=== PATIENT | male | born 1965 | race Caucasian/White ===

== ENCOUNTER 2021-03-02 19:41 | Emergency (ER) | payer BC, SELFPAY ==
[2021-03-02 20:32] VITALS: BP 143/96; PULSE 97; RESP 20; TEMP 37.7; O2SAT 95; BMI 27.8
--- NOTE | 2021-03-02 21:03 | XRR_ITS ---
PROCEDURE INFORMATION: Exam: XR Chest Exam date and time: 03/02/2021 9:24 PM Age: 55 years old Clinical indication: Cough and fever and other: Body aches; Additional info: Covid symptoms TECHNIQUE: Imaging protocol: XR of the chest. Views: 1 view. COMPARISON: No relevant prior studies available. FINDINGS: Lungs: There are some increased interstitial opacities present in the hemithoraces bilaterally, left slightly worse than right, findings that could represent a bilateral interstitial pneumonia. Pleural spaces: Unremarkable. No pleural effusion. No pneumothorax. Heart/Mediastinum: Unremarkable. No cardiomegaly. Bones/joints: Unremarkable. XR/XR chest 1V portable [id number] IMPRESSION: Increased interstitial opacity seen in the hemithoraces bilaterally, left more prominent than right, findings that could represent an interstitial pneumonia.
[2021-03-03 00:20] VITALS: O2SAT 94
[2021-03-03 00:22] VITALS: BP 142/95; PULSE 81; RESP 16; O2SAT 95
[2021-03-03 00:37] LABS: Basophils # 0.1 10^3/uL (0.0-0.1); Basophils % 0.4 %; Eosinophils # 0.1 10^3/uL (0.0-0.8); Eosinophils % 0.5 %; Hematocrit 46.1 % (42.0-52.0); Hemoglobin 15.8 g/dL (11.7-16.6); Lymphocytes # 1.3 10^3/uL (0.8-4.8); Lymphocytes % 10.7 %; Mean Corpuscular HGB Conc 34.3 g/dL (30.0-36.0); Mean Corpuscular Hemoglobin 29.4 pg (28.0-34.0); Mean Corpuscular Volume 85.7 fL (80-94); Mean Platelet Volume 9.4 fL (7.4-10.4); Monocytes # 0.9 10^3/uL (0.2-0.9); Monocytes % 7.6 %; Neutrophils # 9.73 10^3/uL (1.8-7.7); Neutrophils % 80.5 %; Nucleated Red Blood Cells % 0 %; Platelet Count 279 10^3/cmm (130-400); Red Blood Count 5.38 10^6/uL (4.1-5.3); Red Cell Distribution Width 12.7 % (12.1-15.1); White Blood Count 12.1 10^3/uL (4.0-10.0)
[2021-03-03] MEDS: ketorolac 30 mg/mL INJ 15 MG IVP (00:50)
[2021-03-03] MEDS: azithromycin 250 mg Tablet 500 MG PO (00:50)
[2021-03-03] MEDS: cefTRIAXone 1,000 MG in sodium chloride 0.9% (plus) 50 ML 100 MG IV (00:50)
[2021-03-03] MEDS: sodium chloride 0.9% 1,000 ML 999 ML IV (00:51)
[2021-03-03 00:54] LABS: Lactate (Lactic Acid level) 1.2 mmol/L (0.5-2.2)
[2021-03-03 00:55] VITALS: BP 148/94; RESP 16; O2SAT 94
[2021-03-03 00:55] LABS: Alanine Aminotransferase 47 U/L (0-41); Albumin Level 4.3 g/dL (3.5-5.2); Alkaline Phosphatase 65 IU/L (40-130); Anion Gap 12.8 (5-19); Aspartate Amino Transferase 27 U/L (0-40); Blood Urea Nitrogen 13 mg/dL (6-20); Calcium 8.5 mg/dL (8.5-10.5); Carbon Dioxide 26 mmol/L (22-29); Chloride 101 mmol/L (98-107); Globulin 2.9 g/dL (1.3-4.6); Glomerular Filtration Rate 87.9 mL/min (90-130); Glucose 128 mg/dL (65-115); Osmolality Calculated 284 mOsm/kg (285-295); Potassium 3.8 mmol/L (3.5-5.1); Sodium 136 mmol/L (136-145); Total Bilirubin 0.8 mg/dL (0.15-1.2); Total Protein 7.2 g/dL (6.6-8.7)
[2021-03-03 00:57] LABS: SARS Covid-2 Antigen Negative (Negative)
--- NOTE | 2021-03-03 01:15 | W.ED.COVID ---
HPI - COVID General: Chief Complaint: COVID symptoms Stated Complaint: fever/body aches/covid symptoms Time Seen by Provider: 03/02/21 23:41 Source: patient Mode of arrival: ambulatory Triage information: Has fever, cough or shortness of breath. No known COVID + exposure last 14 days History of Present Illness: HPI Narrative: 55-year-old male with fever, body aches, chills starting today. He has had a cough and congestion for the last 2 weeks. No nausea or vomiting. No abdominal pain. His was sick with upper respiratory symptoms as well, but she is feeling better. They had assumed it was allergies. He does not have any history of COPD or asthma. He is otherwise healthy, not on any daily medications. COVID 19 common symptoms: positive fever(s), chills, non-productive cough, productive cough, dyspnea, headache(s) and nasal congestion COVID 19 other sytmptoms: negative chest pain COVID Results: SARS-CoV-2 Antigen (Rapid) Negative (Negative) 03/03/21 00:12 03/03/21 Nasal/Oral Coronavirus 2019 PCR Pending 03/03/21 00:12 03/03/21 Review of Systems General: Reports: 10 or more systems reviewed and unremarkable except in HPI and below Const: Reports: fever(s) and chills ENMT: Reports: hoarseness, nasal discharge and nasal congestion; Denies: odynophagia Card: Denies: chest pain or irregular heart rhythm Resp: Reports: dyspnea, productive cough, non-productive cough and pain on inspiration GI: Reports: abdominal pain : Denies: difficulty urinating or dysuria Musc: Denies: back pain, extremity pain or joint swelling Neuro: Reports: headache(s); Denies: numbness in extremities, weakness in extremities, sensory changes, lack of coordination, difficulty walking, frequent falls or dizziness Endo: Denies: polyuria or polydipsia Jonathon/Lymph: Denies: easy bruising, easy bleeding or petechiae All/Imm: Denies: urticaria or throat swelling Physical Exam Const: COMMON NORMALS: average body habitus and patient oriented x3 GENERAL APPEARANCE: cooperative and ill appearing; not diaphoretic ORIENTATION/CONSCIOUSNESS: Yes awake, Yes oriented to person, Yes oriented to place and Yes oriented to time HENMT: COMMON NORMALS: normocephalic and atraumatic HEAD & SCALP: normocephalic and atraumatic Neck/C-Spine: COMMON NORMALS: full ROM, no lymphadenopathy and supple Resp: COMMON NORMALS: normal respiratory effort and No use of accessory muscles EFFORT & INSPECTION: Yes able to speak in complete sentences, No tachypneic, No respiratory distress, No labored, No stridor, Yes Actively coughing, No retractions and No uses accessory muscles Cardio: COMMON NORMALS: regular rate and regular rhythm RATE: regular rate RHYTHM: regular rhythm HEART SOUNDS: no murmurs GI: COMMON NORMALS: Normal to inspection, nondistended, normoactive bowel sounds present, Soft to palpation, non-tender and no masses PALPATION: Yes Soft to palpation : COMMON NORMALS: Yes no CVA tenderness BLADDER/KIDNEY EXAM: Yes no CVA tenderness Back/Pelvis: COMMON NORMALS: no CVA tenderness Extremity: COMMON NORMALS: normal to inspection, full ROM, capillary refill normal and no pedal edema Neuro: COMMON NORMALS: patient oriented x3 SENSORIUM/ORIENTATION: Yes oriented to person, Yes oriented to place and Yes oriented to time Skin: COMMON NORMALS: no rashes or lesions noted, no wounds, turgor normal, no jaundice and no petechiae GENERAL SKIN EXAM: no rashes or lesions noted and turgor normal Course Vital Signs: Vital signs: Vital Signs Temperature 99.9 F H 03/02/21 20:32 Pulse Rate 78 03/03/21 01:51 Respiratory Rate 18 03/03/21 01:51 Blood Pressure 140/85 03/03/21 01:51 Pulse Oximetry 95 03/03/21 01:51 MDM - COVID MDM Narrative: Medical decision making narrative: 55-year-old male with 2-week history of upper respiratory congestion and cough, started having a fever, body aches and chills today. Chest x-ray shows bilateral basilar infiltrates, left greater than right. WBC count mildly elevated 12.1, otherwise lab work is unremarkable. Rapid Covid swab negative. O2 sats normal on room air. Treated with Toradol, Rocephin, p.o. Zithromax, fluid bolus. Prescription for Zithromax 500 mgx4d, cefdinir 300 mg twice daily for 7 days. Close follow-up with PCP to ensure resolution within the week. Differential Diagnosis: Differential diagnosis: Likely COVID 19, influenza, other viral infection, bacterial infection and pneumonia Medical Records: Attestation: I reviewed the patient's medical records. Lab Data: Attestation: I reviewed the patient's lab results. Labs: Lab Results 03/03/21 03/03/21 03/03/21 Range/Units 00:10 00:10 00:10 WBC 12.1 H (4.0-10.0) 10^3/ uL RBC 5.38 H (4.1-5.3) 10^6/u L Hgb 15.8 (11.7-16.6) g/dL Hct 46.1 (42.0-52.0) % MCV 85.7 (80-94) fL MCH 29.4 (28.0-34.0) pg MCHC 34.3 (30.0-36.0) g/dL RDW 12.7 (12.1-15.1) % Plt Count 279 (130-400) 10^3/c mm MPV 9.4 (7.4-10.4) fL Neut % (Auto) 80.5 % Lymph % (Auto) 10.7 % [place] % (Auto) 7.6 % Eos % (Auto) 0.5 % Baso % (Auto) 0.4 % Neut # (Auto) 9.73 H (1.8-7.7) 10^3/u L Lymph # (Auto) 1.3 (0.8-4.8) 10^3/u L Hardeman # (Auto) 0.9 (0.2-0.9) 10^3/u L Eos # (Auto) 0.1 (0.0-0.8) 10^3/u L Baso # (Auto) 0.1 (0.0-0.1) 10^3/u L Nucleated RBC % (a uto) 0 % Nucleated RBCs # 0.0 /100WBC Sodium 136 (136-145) mmol/L Potassium 3.8 (3.5-5.1) mmol/L Chloride 101 (98-107) mmol/L Carbon Dioxide 26 (22-29) mmol/L Anion Gap 12.8 (5-19) BUN 13 (6-20) mg/dL Creatinine 0.9 (0.7-1.2) mg/dL GFR Calculation 87.9 L (90-130) mL/min Glucose 128 H (65-115) mg/dL Calculated Osmolal ity 284 L (285-295) mOsm/k g Lactate 1.2 (0.5-2.2) mmol/L Calcium 8.5 (8.5-10.5) mg/dL Total Bilirubin 0.8 (0.15-1.2) mg/dL AST 27 (0-40) U/L ALT 47 H (0-41) U/L Alkaline Phosphata se 65 (40-130) IU/L Total Protein 7.2 (6.6-8.7) g/dL Albumin 4.3 (3.5-5.2) g/dL Globulin 2.9 (1.3-4.6) g/dL SARS-CoV-2 Ag (Rap id) (Negative) 03/03/21 Range/Units 00:12 WBC (4.0-10.0) 10^3/ uL RBC (4.1-5.3) 10^6/u L Hgb (11.7-16.6) g/dL Hct (42.0-52.0) % MCV (80-94) fL MCH (28.0-34.0) pg MCHC (30.0-36.0) g/dL RDW (12.1-15.1) % Plt Count (130-400) 10^3/c mm MPV (7.4-10.4) fL Neut % (Auto) % Lymph % (Auto) % [place] % (Auto) % Eos % (Auto) % Baso % (Auto) % Neut # (Auto) (1.8-7.7) 10^3/u L Lymph # (Auto) (0.8-4.8) 10^3/u L Hardeman # (Auto) (0.2-0.9) 10^3/u L Eos # (Auto) (0.0-0.8) 10^3/u L Baso # (Auto) (0.0-0.1) 10^3/u L Nucleated RBC % (a uto) % Nucleated RBCs # /100WBC Sodium (136-145) mmol/L Potassium (3.5-5.1) mmol/L Chloride (98-107) mmol/L Carbon Dioxide (22-29) mmol/L Anion Gap (5-19) BUN (6-20) mg/dL Creatinine (0.7-1.2) mg/dL GFR Calculation (90-130) mL/min Glucose (65-115) mg/dL Calculated Osmolal ity (285-295) mOsm/k g Lactate (0.5-2.2) mmol/L Calcium (8.5-10.5) mg/dL Total Bilirubin (0.15-1.2) mg/dL AST (0-40) U/L ALT (0-41) U/L Alkaline Phosphata se (40-130) IU/L Total Protein (6.6-8.7) g/dL Albumin (3.5-5.2) g/dL Globulin (1.3-4.6) g/dL SARS-CoV-2 Ag (Rap id) Negative (Negative) COVID Results: SARS-CoV-2 Antigen (Rapid) Negative (Negative) 03/03/21 00:12 03/03/21 Nasal/Oral Coronavirus 2019 PCR Pending 03/03/21 00:12 03/03/21 Discharge Plan Discharge Patient Disposition: Home Clinical Impression: Acute febrile illness, Suspected severe acute respiratory syndrome coronavirus 2 (SARS-CoV-2) infection Pneumonia Qualifiers: Pneumonia type: due to unspecified organism Laterality: bilateral Lung location: lower lobe of lung Qualified Code(s): J18.9 - Pneumonia, unspecified organism Condition: Stable Prescriptions: New Zithromax 500 mg tablet See Rx Instructions .ROUTE .COMPLEX Qty: 4 RF: 0 cefdinir 300 mg capsule 300 mg PO BID 7 Days Qty: 14 RF: 0 Discharge Orders: Discharge ED (Routine); Ordered 03/03/21 Ordered By: Rula Montero Discharge Diet: Advance as tolerated Discharge Activity: Resume usual activity Patient Instructions: Pneumonia (ED) Activity Restrictions/Additional Instructions: Rest, drink plenty of fluids, take Tylenol and ibuprofen as needed for fever and body aches. Call to schedule follow-up appoint with your primary care doctor in the next 3 days for recheck. Return immediately to the ER if you develop difficulty breathing, severe headache or confusion, vomiting, or any other concerning symptoms. Coding Level of Care Code ED Utility Operator for [facility] Fwd Exam Detailed
[2021-03-03 01:28] VITALS: BP 130/77; O2SAT 94
[2021-03-03 01:51] VITALS: BP 140/85; PULSE 78; RESP 18; O2SAT 95
[2021-03-03 15:06] LABS: Coronavirus Test Green County Not Detected
--- NOTE | 2021-03-03 16:12 | PC.NURSE ---
pt already notified of negative COVID results
--- NOTE | 2021-03-04 08:46 | PC.NURSE ---
Patient called and notified of COVID results at this time.
== END 2021-03-03 01:58 | disposition home or self-care (01) ==
PROVIDERS: Nurse Practitioner Family; Emergency Provider Family Medicine
DX: J18.9 Pneumonia, unspecified organism (principal); Z20.822 Contact with and (suspected) exposure to COVID-19
CPT/HCPCS: 71045; 80053; 83605; 85025; 87426; 87635; 96365; 96375; 99283; J0696; J1885; J7030; Q0144

== ENCOUNTER 2021-07-21 01:52 | Observation (INO) | payer BC, SELFPAY ==
[2021-07-21] VITALS (12 sets, daily range): BP systolic 122–170; BP diastolic 63–113; PULSE 55–84; RESP 15–18; TEMP 36.2–36.6; O2SAT 93–97; BMI 29.1
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
[2021-07-21] MEDS: ondansetron 2 mg/ML SDV 2 mL 4 MG IVP (02:36)
[2021-07-21] MEDS: HYDROmorphone 1 mg/mL INJ 1 mL IVP (02:36)
[2021-07-21] MEDS: sodium chloride 0.9% 1,000 ML 999 ML IV (02:37)
[2021-07-21 02:38] LABS: Basophils # 0.1 10^3/uL (0.0-0.1); Basophils % 0.4 %; Eosinophils # 0.2 10^3/uL (0.0-0.8); Eosinophils % 1.1 %; Hematocrit 43.7 % (42.0-52.0); Hemoglobin 15.2 g/dL (11.7-16.6); Lymphocytes # 4.1 10^3/uL (0.8-4.8); Lymphocytes % 27.5 %; Mean Corpuscular HGB Conc 34.8 g/dL (30.0-36.0); Mean Corpuscular Hemoglobin 29.5 pg (28.0-34.0); Mean Corpuscular Volume 84.7 fl (80-94); Mean Platelet Volume 9.2 fL (7.4-10.4); Monocytes # 1.5 10^3/uL (0.2-0.9); Neutrophils % 60.7 %; Nucleated Red Blood Cells % 0 %; Platelet Count 279 10^3/cmm (130-400); Red Blood Count 5.16 10^6/uL (4.1-5.3); Red Cell Distribution Width 12.8 % (12.1-15.1)
[2021-07-21] MEDS: iohexol 300 mg/mL 100 mL Btl IV (02:38)
[2021-07-21 02:53] LABS: Add Urine Microscopic? NO; Charge for UA Resulting for Rev
[2021-07-21 02:57] LABS: Alanine Aminotransferase 53 U/L (0-41); Albumin Level 3.9 g/dL (3.5-5.2); Alkaline Phosphatase 60 IU/L (40-130); Anion Gap 14.8 (5-19); Aspartate Amino Transferase 23 U/L (0-40); Blood Urea Nitrogen 15 mg/dL (6-20); Calcium 8.3 mg/dL (8.5-10.5); Carbon Dioxide 25 mmol/L (22-29); Chloride 102 mmol/L (98-107); Globulin 2.3 g/dL (1.3-4.6); Glomerular Filtration Rate 100.7 mL/min (90-130); Glucose 102 mg/dL (65-115); Osmolality Calculated 287 mOsm/kg (285-295); Potassium 3.8 mmol/L (3.5-5.1); Sodium 138 mmol/L (136-145); Total Bilirubin 0.4 mg/dL (0.15-1.2); Total Protein 6.2 g/dL (6.6-8.7)
[2021-07-21 03:00] LABS: Bilirubin Urine Neg (Negative); Blood Urine Neg (Negative); Glucose Urine UA Norm (Normal); Ketones Urine Negative (Negative); Leukocyte Esterase Urine Negative (Negative); Nitrate Urine Negative (Negative); Protein Urine Neg (Negative); Specific Gravity, Urine 1.015 (1.005-1.030); Urine Appearance Clear (CLEAR); Urine Color Yellow (Yellow); Urobilinogen Urine Norm (Negative); pH Urine 7 (5-7)
[2021-07-21 03:08] LABS: Lipase 359 U/L (13-60)
[2021-07-21 04:41] LABS: Triglycerides 202 mg/dL (0-150)
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
[2021-07-21] MEDS: enoxaparin 40 mg/0.4 mL Syringe SUBCUT (06:04)
[2021-07-21] MEDS: pantoprazole 40 mg SDV IVP (06:04)
[2021-07-21] MEDS: sodium chloride 0.9% 1,000 ML 75 ML IV (06:05)
--- NOTE | 2021-07-21 08:03 | PC.PHAR ---
pt states he takes care of his own medications-pt states he finished his prednisone on 07/20/21 rrx filled on 07/14/21 5d/s-pt states he normally doesnt take any medications
--- NOTE | 2021-07-21 10:35 | P.DS_ITS ---
Discharge Providers Date of Admission: 07/21/21 05:22 Date of Discharge: July 21, 2021 Attending Provider at Admission: Ilir Velazquez MD Attending Provider at Discharge: Phoebe Nazario MD Diagnoses at Discharge Discharge Diagnosis (1) Acute pancreatitis: Status: Acute Reason for Visit Reason for Visit: abd pain Hospital Course Hospital Course 55-year male nonalcoholic, smoker, presented with chief complaint abdominal pain he was diagnosed with pancreatitis. No gallstones, triglyceride below 500, he did try some antibiotics for sinusitis before his presentation to the hospital. Overnight he was kept n.p.o., he was started on opioids and IV fluids. Next day his symptoms resolved patient was eager to go home. Is tolerated his diet very well without any recurrence of symptoms. His abdomen was soft no signs of peritonitis. Decision was made to discharge him home with Zofran, electrolyte replenishment. Physical Exam Narrative: EXAM NARRATIVE: Patient was laying comfortably in his bed Saturating well on room air EOMI, PERRLA S1, S2 Abdomen soft no signs of peritonitis No joint swelling no sign of cellulitis Discharge Data Data Completed and Pending: Completed Studies During Hospitalization Category Date Time Status CT abdomen pelvis w con* [id number] Urge nt Cat Scan 07/21/21 02:07 Completed Labs from last 24 hours 07/21/21 07/21/21 07/21/21 03:10 02:25 02:25 WBC RBC Hgb Hct MCV MCH MCHC RDW Plt Count MPV Neut % (Auto) Lymph % (Auto) [place] % (Auto) Eos % (Auto) Baso % (Auto) Neut # (Auto) Lymph # (Auto) [place] # (Auto) Eos # (Auto) Baso # (Auto) Nucleated RBC % (a uto) Nucleated RBCs # Sodium Potassium Chloride Carbon Dioxide Anion Gap BUN Creatinine GFR Calculation Glucose Calculated Osmolal ity Lactate 1.0 Calcium Total Bilirubin AST ALT Alkaline Phosphata se Total Protein Albumin Globulin Triglycerides 202 H Lipase Urine Color Yellow Urine Appearance Clear Urine pH 7 Ur Specific Gravit y 1.015 Urine Protein Neg Urine Glucose (UA) Norm Urine Ketones Negative Urine Blood Neg Urine Nitrate Negative Urine Bilirubin Neg Urine Urobilinogen Norm Ur Leukocyte Sherie ase Negative 07/21/21 07/21/21 02:25 02:25 WBC 15.0 H RBC 5.16 Hgb 15.2 Hct 43.7 MCV 84.7 MCH 29.5 MCHC 34.8 RDW 12.8 Plt Count 279 MPV 9.2 Neut % (Auto) 60.7 Lymph % (Auto) 27.5 [place] % (Auto) 10.0 Eos % (Auto) 1.1 Baso % (Auto) 0.4 Neut # (Auto) 9.10 H Lymph # (Auto) 4.1 [place] # (Auto) 1.5 H Eos # (Auto) 0.2 Baso # (Auto) 0.1 Nucleated RBC % (a uto) 0 Nucleated RBCs # 0.0 Sodium 138 Potassium 3.8 Chloride 102 Carbon Dioxide 25 Anion Gap 14.8 BUN 15 Creatinine 0.8 GFR Calculation 100.7 Glucose 102 Calculated Osmolal ity 287 Lactate Calcium 8.3 L Total Bilirubin 0.4 AST 23 ALT 53 H Alkaline Phosphata se 60 Total Protein 6.2 L Albumin 3.9 Globulin 2.3 Triglycerides Lipase 359 H Urine Color Urine Appearance Urine pH Ur Specific Gravit y Urine Protein Urine Glucose (UA) Urine Ketones Urine Blood Urine Nitrate Urine Bilirubin Urine Urobilinogen Ur Leukocyte Sherie ase Vitals: Last Vital Signs Temp 97.3 F L 07/21/21 07:35 Pulse 55 L 07/21/21 07:35 Resp 18 07/21/21 07:35 BP 147/83 07/21/21 07:35 Pulse Ox 95 07/21/21 07:35 Discharge Plan Discharge Patient Disposition: Home Condition: Stable Prescriptions: New Zofran 4 mg tablet 4 mg PO DAILY 3 Days Qty: 10 RF: 0 potassium chloride 10 mEq capsule, extended release 10 meq PO DAILY Qty: 4 RF: 0 Continued promethazine-DM 6.25-15 mg/5 mL syrup 5 ml PO BEDTIME RF: 0 prednisone 20 mg tablet 40 mg PO DAILY RF: 0 Tylenol Extra Strength 500 mg Tablet 1,000 mg PO Q4H PRN (Reason: Pain) RF: 0 albuterol sulfate 90 mcg/actuation HFA aerosol inhaler 2 puff INHALATION Q4H PRN (Reason: Shortness Of Breath) RF: 0 Discharge Orders: Discharge Order (Routine); Ordered 07/21/21 Ordered By: Phoebe Nazario Other Ambulatory Orders: Lipase (Routine) Timeframe: 2 Days Facility: [facility] - Location: Lab - Main Lab Ordered By: Phoebe Nazario Referrals: Toy Torres MD [Physician] - 07/26/21 1:30 pm Discharge Diet: Advance as tolerated Discharge Activity: Increase activity as tolerated Patient Instructions: Potassium Chloride (By mouth), Ondansetron (By mouth), Pancreatitis (GEN), Opioid Safety Activity Restrictions/Additional Instructions: Please take potassium for next 3 days your potassium level is 3.9, lipase check within 3 days, you have been prescribed Zofran for nausea Discharge Attestations Time Spent in Discharge Care*: less than 30 min Quality Metrics Clinical Quality Measures During this hospital stay, did patient experience: None Coding Level of Care Code Acute Chg FW DC note Diagnoses Acute pancreatitis K85.90
--- NOTE | 2021-07-24 12:49 | PC.SOCIAL ---
discharge follow up call made. patient reports he is having some nausea but is taking zofran and promethazine which are helping. patient is aware of follow up appointment with Dr. Torres on 07-26. patient is coming to [facility] today for lab draw for lipase. patient is taking potassium as prescribed. denies any questions or concerns.
== END 2021-07-21 14:25 | disposition home or self-care (01) ==
LOC: ER 04:26 → MEDSURG 07:20
PROVIDERS: Admitting Provider Family Medicine; Emergency Provider Emergency Medicine; Visit Provider Internal Medicine
DX: K85.90 Acute pancreatitis without necrosis or infection, unspecified (principal); K21.9 Gastro-esophageal reflux disease without esophagitis; Z82.49 Family history of ischemic heart disease and other diseases of the circulatory system
CPT/HCPCS: 74177; 80053; 81003; 83605; 83690; 84478; 85025; 96361; 96372; 96374; 96375; 99285; C9113; G0378; J1170; J1650; J2405; J7030; Q9967

== ENCOUNTER 2021-07-24 16:38 | Emergency (ER) | payer BC, SELFPAY ==
[2021-07-24 17:09] VITALS: BP 142/95; PULSE 86; RESP 16; TEMP 37; O2SAT 95
[2021-07-24] MEDS: calcium carbonate 500 mg Chew Tablet 1000 MG PO (20:09)
--- NOTE | 2021-07-24 21:12 | W.ED.ABDPA2 ---
HPI - Abdominal Pain General: Chief Complaint: Abdominal Pain Stated Complaint: SENT BY PCP: PANCREATITIS Time Seen by Provider: 07/24/21 21:12 History of Present Illness: HPI narrative: 55-year-old male patient comes in with persistent nausea and vomiting after diagnosis of pancreatitis last week. Patient was discharged from the hospital on the after spending the night in the hospital for his pancreatitis. At that time patient's lipase was in the 300s and his CT noticed some stranding in the pancreas and also some mild duodenitis. Patient had no other abnormalities noted. Patient was seen by primary care today and referred back to the ER for further evaluation. MD elicited complaint: abdominal pain Associated Symptoms: Reports nausea and vomiting Review of Systems General: Reports: 10 or more systems reviewed and unremarkable except in HPI and below GI: Reports: abdominal pain, nausea and vomiting PFS ED PFSH: Medical History (Updated 07/24/21 @ 22:36 by TYLOR Turcios) History of gastroesophageal reflux (GERD) Surgical History (Updated 07/21/21 @ 04:53 by Ilir Velazquez MD) History of exploratory laparotomy Family History (Updated 07/21/21 @ 04:53 by Ilir Velazquez MD) Sister CAD (coronary artery disease) Brother CAD (coronary artery disease) Social History (Updated 07/21/21 @ 04:54 by Ilir Velazquez MD) Smoking and tobacco status: never smoked Alcohol intake: current Alcohol intake frequency: holidays/special occasions only Physical Exam Const: COMMON NORMALS: no acute distress and patient oriented x3 GENERAL APPEARANCE: cooperative HENMT: COMMON NORMALS: normocephalic and Normal external nose present HEAD & SCALP: normal to inspection and normocephalic NOSE: Normal external nose present MOUTH: Normal oral and palatal mucosa present Eye: GENERAL EYE: appearance normal, both eyes and all related structures Neck/C-Spine: COMMON NORMALS: full ROM Chest: COMMONS NORMALS: normal inspection of the chest Resp: COMMON NORMALS: normal respiratory effort EFFORT & INSPECTION: Yes able to speak in complete sentences Cardio: COMMON NORMALS: regular rate and regular rhythm RATE: regular rate RHYTHM: regular rhythm GI: COMMON NORMALS: Soft to palpation PALPATION: Yes Soft to palpation, Yes Tenderness to palpation present (GI) (tenderness in epigastric in right quadrant) and No Guarding due to palpation present (GI) : COMMON NORMALS: Yes no CVA tenderness BLADDER/KIDNEY EXAM: Yes no CVA tenderness Back/Pelvis: COMMON NORMALS: no CVA tenderness and thoracic and lumbar spine normal to inspection Extremity: COMMON NORMALS: normal to inspection Neuro: COMMON NORMALS: patient oriented x3 and moves all extremities Psych: COMMON NORMALS: mental status grossly normal and cooperative Skin: COMMON NORMALS: no rashes or lesions noted GENERAL SKIN EXAM: no rashes or lesions noted Course Vital Signs: Vital signs: Vital Signs Temperature 98.6 F 07/24/21 17:09 Pulse Rate 75 07/24/21 21:46 Respiratory Rate 18 07/24/21 21:46 Blood Pressure 137/104 07/24/21 21:46 Pulse Oximetry 95 07/24/21 21:46 MDM - Abdominal Pain MDM Narrative: Medical decision making narrative: Patient was referred from primary care for further evaluation regarding abdominal pain. On exam patient had some generalized abdominal pain mainly in the epigastric region of abdomen. Bowel sounds were present. Abdomen was soft. Vital signs were normal except for some mild elevation in blood pressure. Differential diagnosis includes but not limited to gallbladder disease, worsening pancreatitis, dehydration, duodenitis. Reviewed CT scan from the when patient was last here it showed some mild pancreatitis and duodenitis. Patient's laboratory values were similar to prior exam except lipase had returned to normal and liver enzymes have returned to normal. Patient did have some mild leukocytosis with 15,000 white count and some mild elevation in his hemoglobin of 17.5. Patient's creatinine also increased to 1.0. I felt the patient probably had some dehydration due to his bouts of nausea and vomiting that persisted over the weekend. Patient's potassium was good at 4.2. Patient was given 2 L of normal saline with famotidine, ondansetron, and 15 mg of ketorolac. Patient had resolution of abdominal pain and felt much improved. I reviewed with patient recommendations for returning to a clear liquid diet and increasing diet over the next couple of days. I strongly recommended avoiding strong greasy and spicy foods. Patient reported understanding and agreed to plan. Lab Data: Labs: Lab Results 07/24/21 07/24/21 07/24/21 21:17 21:17 21:17 WBC 15.4 10^3/uL H 10 ^3/uL (4.0-10.0) RBC 5.88 10^6/uL H 10 ^6/uL (4.1-5.3) Hgb 17.5 g/dL H g/dL (11.7-16.6) Hct 50.4 % % (42.0-52.0) MCV 85.7 fl fl (80-94) MCH 29.8 pg pg (28.0-34.0) MCHC 34.7 g/dL g/dL (30.0-36.0) RDW 13.0 % % (12.1-15.1) Plt Count 320 10^3/cmm 10^3 /cmm (130-400) MPV 9.3 fL fL (7.4-10.4) Neut % (Auto) 66.1 % % Lymph % (Auto) 20.7 % % [place] % (Auto) 10.1 % % Eos % (Auto) 2.2 % % Baso % (Auto) 0.4 % % Neut # (Auto) 10.20 10^3/uL H 1 0^3/uL (1.8-7.7) Lymph # (Auto) 3.2 10^3/uL 10^3/ uL (0.8-4.8) [place] # (Auto) 1.6 10^3/uL H 10^ 3/uL (0.2-0.9) Eos # (Auto) 0.3 10^3/uL 10^3/ uL (0.0-0.8) Baso # (Auto) 0.1 10^3/uL 10^3/ uL (0.0-0.1) Nucleated RBC % (a uto) 0 % % Nucleated RBCs # 0.0 /100WBC /100W BC Sodium 136 mmol/L mmol/L (136-145) Potassium 4.2 mmol/L mmol/L (3.5-5.1) Chloride 100 mmol/L mmol/L (98-107) Carbon Dioxide 23 mmol/L mmol/L (22-29) Anion Gap 17.2 (5-19) BUN 14 mg/dL mg/dL (6-20) Creatinine 1.0 mg/dL mg/dL (0.7-1.2) GFR Calculation 77.9 mL/min L mL/ min (90-130) Glucose 94 mg/dL mg/dL (65-115) Calculated Osmolal ity 282 mOsm/kg L mOs m/kg (285-295) Lactate 0.9 mmol/L mmol/L (0.5-2.2) Calcium 9.5 mg/dL mg/dL (8.5-10.5) Total Bilirubin 0.6 mg/dL mg/dL (0.15-1.2) AST 14 U/L U/L (0-40) ALT 25 U/L U/L (0-41) Alkaline Phosphata se 69 IU/L IU/L (40-130) Total Protein 7.7 g/dL g/dL (6.6-8.7) Albumin 4.0 g/dL g/dL (3.5-5.2) Globulin 3.7 g/dL g/dL (1.3-4.6) Lipase 51 U/L U/L (13-60) Discharge Plan Discharge Patient Disposition: Home Clinical Impression: Dehydration, Duodenitis Abdominal pain Qualifiers: Abdominal location: epigastric Qualified Code(s): R10.13 - Epigastric pain Pancreatitis Qualifiers: Chronicity: acute Pancreatitis type: unspecified pancreatitis type Acute pancreatitis complication: no infection or necrosis Qualified Code(s): K85.90 - Acute pancreatitis without necrosis or infection, unspecified Condition: Stable Prescriptions: New Heartburn Prevention 20 mg tablet 20 mg PO BID 28 Days Qty: 56 RF: 0 No Action promethazine-DM 6.25-15 mg/5 mL syrup 5 ml PO BEDTIME RF: 0 prednisone 20 mg tablet 40 mg PO DAILY RF: 0 Tylenol Extra Strength 500 mg Tablet 1,000 mg PO Q4H PRN (Reason: Pain) RF: 0 albuterol sulfate 90 mcg/actuation HFA aerosol inhaler 2 puff INHALATION Q4H PRN (Reason: Shortness Of Breath) RF: 0 potassium chloride 10 mEq capsule, extended release 10 meq PO DAILY Qty: 4 RF: 0 Discharge Orders: Discharge ED (Routine); Ordered 07/24/21 Ordered By: Higinio Rosado Referrals: Toy Torres MD [Primary Care Provider] - Discharge Diet: Usual diet Discharge Activity: Increase activity as tolerated Patient Instructions: Abdominal Pain (ED), Opioid Safety Activity Restrictions/Additional Instructions: Start back with a light diet. Stick with clear liquids until pain is completely resolved. Then add back slowly with full liquids, broth soups, or cream soups. Then increase to a bland diet. Try to avoid really greasy or fatty foods. Also avoid any strong acidic foods. Follow-up with primary care for further instruction. Return to the ER for new concerns. Coding Level of Care Code ED Want Ad Receiver for Debora Fwd Exam Comprehensive
[2021-07-24 21:20] LABS: Basophils # 0.1 10^3/uL (0.0-0.1); Basophils % 0.4 %; Eosinophils # 0.3 10^3/uL (0.0-0.8); Eosinophils % 2.2 %; Hematocrit 50.4 % (42.0-52.0); Hemoglobin 17.5 g/dL (11.7-16.6); Lymphocytes # 3.2 10^3/uL (0.8-4.8); Lymphocytes % 20.7 %; Mean Corpuscular HGB Conc 34.7 g/dL (30.0-36.0); Mean Corpuscular Hemoglobin 29.8 pg (28.0-34.0); Mean Corpuscular Volume 85.7 fl (80-94); Mean Platelet Volume 9.3 fL (7.4-10.4); Monocytes # 1.6 10^3/uL (0.2-0.9); Monocytes % 10.1 %; Neutrophils % 66.1 %; Nucleated Red Blood Cells % 0 %; Platelet Count 320 10^3/cmm (130-400); Red Blood Count 5.88 10^6/uL (4.1-5.3); White Blood Count 15.4 10^3/uL (4.0-10.0)
[2021-07-24 21:25] VITALS: PULSE 80; RESP 25; O2SAT 94
[2021-07-24] MEDS: ondansetron 2 mg/ML SDV 2 mL 4 MG IVP (21:27)
[2021-07-24] MEDS: famotidine 20 mg/2 mL INJ 40 MG IVP (21:30)
[2021-07-24] MEDS: ketorolac 30 mg/mL INJ 15 MG IVP (21:32)
[2021-07-24] MEDS: sodium chloride 0.9% 1,000 ML 999 ML IV ×2 (21:33→22:11)
[2021-07-24 21:36] LABS: Alanine Aminotransferase 25 U/L (0-41); Alkaline Phosphatase 69 IU/L (40-130); Anion Gap 17.2 (5-19); Aspartate Amino Transferase 14 U/L (0-40); Blood Urea Nitrogen 14 mg/dL (6-20); Calcium 9.5 mg/dL (8.5-10.5); Carbon Dioxide 23 mmol/L (22-29); Chloride 100 mmol/L (98-107); Globulin 3.7 g/dL (1.3-4.6); Glomerular Filtration Rate 77.9 mL/min (90-130); Glucose 94 mg/dL (65-115); Lipase 51 U/L (13-60); Osmolality Calculated 282 mOsm/kg (285-295); Potassium 4.2 mmol/L (3.5-5.1); Sodium 136 mmol/L (136-145); Total Bilirubin 0.6 mg/dL (0.15-1.2); Total Protein 7.7 g/dL (6.6-8.7)
[2021-07-24 21:37] LABS: Lactate (Lactic Acid level) 0.9 mmol/L (0.5-2.2)
[2021-07-24 21:46] VITALS: BP 137/104; PULSE 75; RESP 18; O2SAT 95
[2021-07-24 22:49] VITALS: BP 132/78; PULSE 88; RESP 16; O2SAT 99
== END 2021-07-24 22:51 | disposition home or self-care (01) ==
PROVIDERS: Emergency Provider Nurse Practitioner Family; PCP Family Medicine
DX: K85.90 Acute pancreatitis without necrosis or infection, unspecified (principal); K29.80 Duodenitis without bleeding; R10.13 Epigastric pain; E86.0 Dehydration
CPT/HCPCS: 80053; 83605; 83690; 85025; 96361; 96374; 96375; 99284; J1885; J2405; J3490; J7030

== ENCOUNTER → 2022-06-21 07:25 | Outpatient (BNVA) | payer BC, SELFPAY | PROVIDERS: PCP Family Medicine; Visit Provider Student in an Organized Health Care Education/Training Program | DX: M25.561 Pain in right knee (principal) | CPT/HCPCS: 73564 ==

== ENCOUNTER 2022-08-14 07:10 | Outpatient (CLI) | payer BC, SELFPAY ==
--- NOTE | 2022-08-14 07:15 | MR_ITS ---
WS: [id number] MRI RIGHT KNEE NONCONTRAST TECHNIQUE: Axial PD, coronal PD fat sat, coronal PD, sagittal PD, and sagittal PD fat-sat images obta ined. CLINICAL INFORMATION: pain COMPARISON: None. FINDINGS: Distal quadriceps and patella tendons are intact. Moderate suprapatellar effusion.Normal ACL and PCL. Advanced tricompartmental arthritis prominent for patient this age. Diffuse intrasubstance signal abn ormality with chronic appearing tear involving the medial meniscus. Anterior and peripheral extrusion of the medial meniscus with chronic thinning and diffuse abnormal intrasubstance signal abnormality. Normal lateral meniscus. Moderate chondromalacia patella. No subchondral edema. Normal medial and lateral patellar retinaculum . Normal lateral collateral ligament. Normal medial collateral ligament. MR/MR knee RT wo con* [id number] IMPRESSION: 1. Moderate suprapatellar effusion. 2. ACL and PCL are intact. 3. Advanced tricompartmental arthritis prominent for patient this age. 4. Diffuse intrasubstance signal abnormality involving the medial meniscus wit h peripheral and anterior extrusion and advanced joint space narrowing medial j oint compartment with [id number] articulation. This is likely due to chronic tear 5. Medial and lateral collateral ligaments are intact. 6. Moderate chondromalacia patella. Outbridge grading: grade IV: full-thickness cartilage loss with underlying bone reactive changes
== END 2022-08-14 07:11 | disposition home or self-care (01) ==
LOC: RAD 07:11
PROVIDERS: PCP Family Medicine; Visit Provider Student in an Organized Health Care Education/Training Program
DX: M17.11 Unilateral primary osteoarthritis, right knee (principal); M22.41 Chondromalacia patellae, right knee; M25.461 Effusion, right knee
CPT/HCPCS: 73721

== ENCOUNTER → 2024-01-02 08:42 | Outpatient (BNVA) | payer BC, SELFPAY | PROVIDERS: PCP Family Medicine; Visit Provider Physician Assistant | DX: M25.561 Pain in right knee (principal); M94.261 Chondromalacia, right knee | CPT/HCPCS: 73560; 73565 ==

== ENCOUNTER → 2024-09-03 11:41 | Outpatient (BNVA) | payer BC, SELFPAY | PROVIDERS: PCP Family Medicine; Visit Provider Physician Assistant | DX: M25.561 Pain in right knee (principal); M94.261 Chondromalacia, right knee; S83.206A Unspecified tear of unspecified meniscus, current injury, right knee, initial encounter; X50.9XXA Other and unspecified overexertion or strenuous movements or postures, initial encounter; R03.0 Elevated blood-pressure reading, without diagnosis of hypertension | CPT/HCPCS: 73560; 73565 ==

== ENCOUNTER 2025-04-19 07:51 | Emergency (ER) | payer BC, SELFPAY ==
[2025-04-19] VITALS (7 sets, daily range): BP systolic 135–190; BP diastolic 89–120; PULSE 52–67; RESP 14–22; TEMP 36.4; O2SAT 94–97
--- NOTE | 2025-04-19 08:18 | XRR_ITS ---
PROCEDURE INFORMATION: Exam: XR Chest Exam date and time: 04/19/2025 8:33 AM Age: 59 years old Clinical indication: Pain; Chest pressure; Additional info: Chest pain TECHNIQUE: Imaging protocol: Radiologic exam of the chest. Views: 1 view. COMPARISON: CR XR chest 1V portable [id number] 03/02/2021 9:13 PM FINDINGS: Lungs: Unremarkable. No consolidation. Pleural spaces: Unremarkable. No pleural effusion. No pneumothorax. Heart/Mediastinum: Unremarkable. No cardiomegaly. Bones/joints: Unremarkable. XR/XR chest 1V portable [id number] IMPRESSION: No acute findings.
--- NOTE | 2025-04-19 08:18 | ECG_ITS ---
[facility] Test Date: 2025-04-19 Pat Name: Mando Garcia Department: Room: Gender: Male Train Engineer: : 1965 Requested By: Giuseppe Ty Order Number: [id number] Hollie MD: Mike Boland M.D. Measurements Intervals [place] Rate: 69 P: 60 DE: 155 QRS: -74 QRSD: 120 T: 62 QT: 409 QTc: 440 Interpretive Statements SINUS RHYTHM RIGHT BUNDLE BRANCH BLOCK [120+ ms QRS DURATION, UPRIGHT V1, 40+ ms S IN I/aVL/V4/V5/V6] LEFT ANTERIOR FASCICULAR BLOCK [QRS AXIS <= -45, QR IN I, RS IN II] No previous ECG available for comparison Electronically Signed On 04-19-2025 21:57:44 CDT by Mike Boland M.D. [id number]
[2025-04-19 08:31] LABS: Basophils # 0.1 10^3/uL (0.0-0.1); Basophils % 1.1 %; Eosinophils # 0.5 10^3/uL (0.0-0.8); Eosinophils % 6.2 %; Hematocrit 48.8 % (37-53); Lymphocytes # 2.6 10^3/uL (0.8-4.8); Lymphocytes % 32.8 %; Mean Corpuscular HGB Conc 34.4 g/dL (30-55); Mean Corpuscular Hemoglobin 29.9 pg (27-33); Mean Platelet Volume 9.2 fL (7.4-10.4); Monocytes # 0.8 10^3/uL (0.2-0.9); Monocytes % 10.3 %; Neutrophils # 3.95 10^3/uL (1.8-7.7); Neutrophils % 49.2 %; Nucleated Red Blood Cells % 0 %; Platelet Count 271 10^3/cmm (157-399); Red Blood Count 5.61 10^6/uL (3.85-5.65); Red Cell Distribution Width 12.8 % (12.1-15.1); White Blood Count 8.04 10^3/uL (3.29-11.43)
--- NOTE | 2025-04-19 08:36 | W.ED.CHESTPA ---
HPI - Chest Pain General: Chief Complaint: Chest Pain Stated Complaint: cp, dizzy,abd pain Time Seen by Provider: 04/19/25 07:53 History of Present Illness: 51-year-old male presents emergency room with episodes of chest discomfort. He gets chest pain on the left side no radiation some shortness of breath associated with it it will last for approximately 30 seconds then resolves. At time I seen him he has no acute chest pain. No associated nausea or vomiting he reports he just does not feel good he does have a little bit of abdominal discomfort with it. No fever sweats chills no productive cough. No history of coronary disease no history of previous DVT or PE Associated symptoms: Reports abdominal pain and nausea; Deny dyspnea, fever(s) or vomiting Related Data Home Medications ?Medication ?Instructions ?Recorded ?Confirmed omeprazole 20 mg capsule,delayed 20 mg PO QAM 10/04/24 04/19/25 release cetirizine 10 mg tablet (Zyrtec) 10 mg PO QAM PRN allergy symptoms 04/19/25 04/19/25 Previous Rx's ?Medication ?Instructions ?Recorded aspirin 81 mg tablet,delayed 81 mg PO DAILY #30 tabs 04/19/25 release Allergies Allergy/AdvReac Type Severity Reaction Status Date / Time codeine Allergy ADR-Nausea Verified 03/09/25 16:09 egg Allergy Unknown Verified 03/09/25 16:09 Review of Systems Const: Denies: fever(s) or chills Card: Reports: chest pain Resp: Denies: dyspnea GI: Reports: abdominal pain and nausea; Denies: vomiting, hematemesis, hematochezia or melena : Denies: dysuria, urinary frequency or urinary urgency Musc: Denies: neck pain or back pain Skin/Breast: Denies: rash PFSH ED PFSH: Medical History Allergic rhinitis due to allergen URI with cough and congestion Chondromalacia, right knee Right knee meniscal tear History of gastroesophageal reflux (GERD) Surgical History History of exploratory laparotomy Family History Sister CAD (coronary artery disease) Brother CAD (coronary artery disease) Social History Smoking and tobacco/nicotine status: never used tobacco/nicotine Alcohol intake: current Alcohol intake frequency: holidays/special occasions only Substance/Drug Use: never Physical Exam Const: GENERAL APPEARANCE: cooperative ORIENTATION/CONSCIOUSNESS: Yes awake, Yes oriented to person, Yes oriented to place and Yes oriented to time HENMT: COMMON NORMALS: normocephalic, atraumatic and hearing grossly normal bilaterally HEAD & SCALP: normocephalic and atraumatic Resp: COMMON NORMALS: normal respiratory effort, No retractions, No use of accessory muscles and clear to auscultation bilaterally AUSCULTATION: clear to auscultation bilaterally Cardio: COMMON NORMALS: regular rate, regular rhythm and No murmurs present (Cardio) RATE: regular rate RHYTHM: regular rhythm GI: COMMON NORMALS: Soft to palpation and No hepatosplenomegaly present AUSCULTATION: Yes normoactive bowel sounds PALPATION: Yes Soft to palpation, No Tenderness to palpation present (GI), No Guarding due to palpation present (GI) and Yes No hepatosplenomegaly present Extremity: COMMON NORMALS: normal to inspection, capillary refill normal, no clubbing, cyanosis or edema, no calf tenderness and no pedal edema Neuro: SENSORIUM/ORIENTATION: Yes oriented to person, Yes oriented to place and Yes oriented to time Skin: COMMON NORMALS: no rashes or lesions noted GENERAL SKIN EXAM: no rashes or lesions noted Course Vital Signs: Vital signs: Vital Signs Temperature 97.6 F 04/19/25 07:55 Pulse Rate 52 L 04/19/25 11:59 Respiratory Rate 16 04/19/25 11:59 Blood Pressure 147/96 04/19/25 11:59 Pulse Oximetry 97 04/19/25 11:59 Oxygen Delivery Me thod Room Air 04/19/25 11:30 MDM - Chest Pain Medical Decision Making Cardiac enzymes negative no sign of acute coronary syndrome he is not having any further chest pain his chest pain is not highly suggestive of acute coronary syndrome he has no signs of PE at this time. Chest x-ray negative for widening of mediastinum pneumonia or pneumothorax. Will discharge patient home set him up for an outpatient Lexiscan sestamibi stress test Medical Records I reviewed the patient's medical records. Lab Data I reviewed the patient's lab results. 04/19/25 08:03 04/19/25 08:03 Radiology Impressions Chest X-Ray 04/19/25 08:18 IMPRESSION: No acute findings. Laboratory Results WBC 8.04 10^3/uL (3.29-11.43) 04/19/25 08:03 RBC 5.61 10^6/uL (3.85-5.65) 04/19/25 08:03 Hgb 16.80 g/dL (11.27-16.99) 04/19/25 08:03 Hct 48.8 % (37-53) 04/19/25 08:03 MCV 87.0 fl (82-101) 04/19/25 08:03 MCH 29.9 pg (27-33) 04/19/25 08:03 MCHC 34.4 g/dL (30-55) 04/19/25 08:03 RDW 12.8 % (12.1-15.1) 04/19/25 08:03 Plt Count 271 10^3/cmm (157-399) 04/19/25 08:03 MPV 9.2 fL (7.4-10.4) 04/19/25 08:03 Neut % (Auto) 49.2 % 04/19/25 08:03 Lymph % (Auto) 32.8 % 04/19/25 08:03 [place] % (Auto) 10.3 % 04/19/25 08:03 Eos % (Auto) 6.2 % 04/19/25 08:03 Baso % (Auto) 1.1 % 04/19/25 08:03 Neut # (Auto) 3.95 10^3/uL (1.8-7.7) 04/19/25 08:03 Lymph # (Auto) 2.6 10^3/uL (0.8-4.8) 04/19/25 08:03 [place] # (Auto) 0.8 10^3/uL (0.2-0.9) 04/19/25 08:03 Eos # (Auto) 0.5 10^3/uL (0.0-0.8) 04/19/25 08:03 Baso # (Auto) 0.1 10^3/uL (0.0-0.1) 04/19/25 08:03 Nucleated RBC % (auto) 0 % 04/19/25 08:03 Nucleated RBCs # 0.0 /100WBC 04/19/25 08:03 Sodium 139 mmol/L (136-145) 04/19/25 08:03 Potassium 4.5 mmol/L (3.5-5.1) 04/19/25 08:03 Chloride 104 mmol/L (98-107) 04/19/25 08:03 Carbon Dioxide 23 mmol/L (22-29) 04/19/25 08:03 Anion Gap 16.5 (5-19) 04/19/25 08:03 BUN 16 mg/dL (6-20) 04/19/25 08:03 Creatinine 0.9 mg/dL (0.7-1.2) 04/19/25 08:03 GFR Calculation 86.7 mL/min (90-130) L 04/19/25 08:03 Glucose 107 mg/dL (65-115) 04/19/25 08:03 Calculated Osmolality 290 mOsm/kg (285-295) 04/19/25 08:03 Calcium 9.3 mg/dL (8.5-10.5) 04/19/25 08:03 Total Bilirubin 0.5 mg/dL (0.15-1.2) 04/19/25 08:03 AST 27 U/L (0-40) 04/19/25 08:03 ALT 49 U/L (0-41) H 04/19/25 08:03 Alkaline Phosphatase 78 U/L (40-130) 04/19/25 08:03 Troponin T Baseline 7 ng/L (0-15) 04/19/25 08:03 Troponin T 120 Minute 6.36 ng/L (0-15) 04/19/25 10:00 Delta Troponin T -0.64 ABS# (0-10) L 04/19/25 10:00 Total Protein 7.1 g/dL (6.6-8.7) 04/19/25 08:03 Albumin 4.2 g/dL (3.5-5.2) 04/19/25 08:03 Globulin 2.9 g/dL (1.3-4.6) 04/19/25 08:03 All radiology interpretation(s) finalized by discharge Discharge Plan Discharge Patient Disposition: Home Clinical Impression: Chest pain Condition: Stable Prescriptions: New aspirin 81 mg tablet,delayed release (DR/EC) 81 mg PO DAILY Qty: 30 0RF No Action omeprazole 20 mg capsule,delayed release(DR/EC) 20 mg PO QAM cetirizine [Zyrtec] 10 mg tablet 10 mg PO QAM PRN (Reason: allergy symptoms) Discharge Orders: Discharge ED (Routine); Ordered 04/19/25 Ordered By: Giuseppe Reyna Referrals: Toy Torres MD [Primary Care Provider, Family Practice] Patient Instructions: Opioid Safety, Pain Management Activity Restrictions/Additional Instructions: [facility]. It is very important that you follow up as instructed or that you return to the Emergency Department should you have concerns or if your condition changes or worsens in any way. You were seen for chest discomfort. Your EKGs and cardiac enzymes were normal. Your white count is normal. There is a slight elevation in one of your liver enzymes but the remainder of your lab test was unremarkable chest x-ray was also normal. Will discharge home recommend take baby aspirin daily. Case management make arranges for you to have follow-up with a outpatient stress test Print Language: Mongolian Coding Level of Care Code ED Septic Tank Servicer for Debora Srivastava
[2025-04-19 08:47] LABS: Troponin(5th) Baseline 7 ng/L (0-15)
[2025-04-19] MEDS: aspirin 81 mg Chew Tablet 324 MG PO (08:48)
[2025-04-19 08:50] LABS: Alanine Aminotransferase 49 U/L (0-41); Albumin Level 4.2 g/dL (3.5-5.2); Alkaline Phosphatase 78 U/L (40-130); Anion Gap 16.5 (5-19); Aspartate Amino Transferase 27 U/L (0-40); Blood Urea Nitrogen 16 mg/dL (6-20); Calcium 9.3 mg/dL (8.5-10.5); Carbon Dioxide 23 mmol/L (22-29); Chloride 104 mmol/L (98-107); Creatinine Clr Calc Pharmacy 111.7255; Globulin 2.9 g/dL (1.3-4.6); Glomerular Filtration Rate 86.7 mL/min (90-130); Glucose 107 mg/dL (65-115); Osmolality Calculated 290 mOsm/kg (285-295); Potassium 4.5 mmol/L (3.5-5.1); Sodium 139 mmol/L (136-145); Total Bilirubin 0.5 mg/dL (0.15-1.2); Total Protein 7.1 g/dL (6.6-8.7)
--- NOTE | 2025-04-19 10:18 | ECG_ITS ---
Sina Malhar Test Date: 2025-04-19 Pat Name: Mando Garcia Department: Room: Gender: Male [employer] Manager: : 1965 Requested By: Giuseppe Ty Order Number: [id number] Hollie MD: Mike Boland M.D. Measurements Intervals [place] Rate: 50 P: 52 [place]: 169 QRS: -50 QRSD: 124 T: 70 QT: 454 QTc: 416 Interpretive Statements SINUS BRADYCARDIA POSSIBLE RIGHT VENTRICULAR CONDUCTION DELAY [RSR (QR) IN V1/V2] LEFT ANTERIOR FASCICULAR BLOCK [QRS AXIS <= -45, QR IN I, RS IN II] POSSIBLE LATERAL MYOCARDIAL INFARCTION , OF INDETERMINATE AGE [30 ms Q WAVE IN I/aVL/V5/V6] Compared to ECG 04/19/2025 07:57:17 Myocardial infarct finding now present Sinus rhythm no longer present Right bundle-branch block no longer present Electronically Signed On 04-19-2025 22:09:57 CDT by Mike Boland M.D. [email or web address]
[2025-04-19 10:50] LABS: Troponin 5 2HR 6.36 ng/L (0-15)
[2025-04-19 10:51] LABS: Troponin 5 2HR Delta -0.64 ABS# (0-10)
--- NOTE | 2025-04-22 08:35 | DCPLANNER ---
faxed outpatient lexiscan order to scheduling
== END 2025-04-19 11:57 | disposition home or self-care (01) ==
PROVIDERS: Emergency Provider Family Medicine; PCP Family Medicine
DX: R07.89 Other chest pain (principal)
CPT/HCPCS: 36415; 71045; 80053; 84484; 85025; 93005; 99285; J9999

== ENCOUNTER 2025-04-28 06:00 | Outpatient (CLI) | payer BC, SELFPAY ==
--- NOTE | 2025-04-28 06:16 | USCV_ITS ---
Mando Garcia Age: 59 Gender: M : 1965 Exam Date: 04/28/2025 06:26 Ordering Phys: Jose Munguia MD Technologist: NII Exam Location: [facility] [place] Indication: syst murmur BP: 125 / 73 HR: 50 Rhythm: Sinus Technical Quality: Adequate MEASUREMENTS (Male / Female) Normal Values 2D ECHO LV Diastolic Diameter PLAX 5.0 cm 4.2 - 5.9 / 3.9 - 5.3 cm IVS Diastolic Thickness 1.3 cm 0.6 - 1.0 / 0.6 - 0.9 cm IVS Systolic Thickness 2.1 cm LVPW Diastolic Thickness 1.3 cm 0.6 - 1.0 / 0.6 - 0.9 cm LVPW Systolic Thickness 1.5 cm LVOT Diameter 2.0 cm LV Ejection Fraction 2D Teich 69.5 % LV Ejection Fraction MOD 4C 58.6 % LV Ejection Fraction MOD 2C 61.7 % LV Ejection Fraction 2C AL 63.5 % LA Diameter 4.1 cm RA Systolic Volume 4C AL 44.4 ml RA Systolic Volume 4C MOD 44.2 ml LA Sys Volume AL 98.6 cm cubed LA Sys Volume Index AL 42.8 cm cubed/m squared Aorta at Sinotubular Diameter 2.6 cm IVC Diameter 1.9 cm M-MODE LA Ao Ratio MM 1.2 AV Cusp Separation MM 2.4 cm DOPPLER AV Peak Velocity 137.0 cm/s LVOT Peak Velocity 82.0 cm/s AV Area Cont Eq vti 2.6 cm squared AV Area Cont Eq pk 1.9 cm squared MV Peak Velocity 95.0 cm/s MV Area PHT 2.3 cm squared Mitral E to A Ratio 1.3 TV Peak Velocity 194.0 cm/s TR Peak Velocity 205.0 cm/s TR Peak Gradient 16.8 mmHg TV Peak E Velocity 90.0 cm/s PV Peak Velocity 95.0 cm/s FINDINGS Left Ventricle Ventricle is normal in size. LV systolic function is normal with EF of 60 to 65%. No regional wall motion abnormalities are seen. Mild left ventricular hypertrophy. Right Ventricle Normal in size and function Right Atrium Normal in size Left Atrium Dilated Mitral Valve Structurally normal mitral valve. Mild mitral regurgitation Aortic Valve Structurally normal aortic valve. No significant stenosis or regurgitation. Tricuspid Valve Insufficient TR jet to calculate RVSP. Pulmonic Valve Mild pulmonic regurgitation. Pericardium Normal Aorta Normal in size IVC Not well visualized CONCLUSIONS LV systolic function is normal with EF of 60-65%. Mild left ventricular hypertrophy. Left atrial dilation. Mild mitral regurgitation. Mild pulmonic regurgitation Slava Trevizo MD (Electronically Signed) Final Date: 14 May 2025 09:58 S
== END 2025-04-28 06:01 | disposition home or self-care (01) ==
PROVIDERS: PCP Family Medicine; Visit Provider Family Medicine
DX: R01.1 Cardiac murmur, unspecified (principal); I51.7 Cardiomegaly; I34.0 Nonrheumatic mitral (valve) insufficiency; I37.1 Nonrheumatic pulmonary valve insufficiency; R93.1 Abnormal findings on diagnostic imaging of heart and coronary circulation
CPT/HCPCS: 93306

== ENCOUNTER 2025-04-29 08:32 | Outpatient (CLI) | payer BC, SELFPAY ==
--- NOTE | 2025-04-29 | ECG_ITS ---
[facility]29 Pat Name: Mando Garcia Department: Room: Gender: Male [employer] Resource Teacher: : 1965 Requested By: Giuseppe Ty Order Number: [id number] Hollie MD: Slava Trevizo M.D. Interpretive Statements LEXISCAN SESTAMIBI STRESS TEST Procedure: At the baseline, the blood pressure was 154/103 mmHg with a heart rate of 52 bpm. The electrocardiogram showed sinus bradycardia, normal axis with normal ST and T's. The Lexiscan was infused over a period of 20 seconds. A total of 0.4 mg of Lexiscan was infused. The stress phase was continued for a total of 5 minutes. Heart rate was at the end of stress phase was 67 bpm and a blood pressure of 149/99 mmHg. The EKG at the peak infusion revealed normal sinus rhythm with no significant ST-T wave changes. Sestamibi was injected 20 seconds after the Lexiscan infusion. Blood pressure at the end of recovery phase was 158/105 mmHg with a heart rate of 63 bpm. Conclusion: 1. Normal EKG response to Lexiscan infusion 2. No Lexiscan induced chest pain or cardiac arrhythmia. 3. Normal blood pressure and heart rate response. 4. Sestamibi/sestamibi perfusion scan pending; see separate report. Electronically Signed On 05-15-2025 13:26:16 CDT by Slava Trevizo M.D. [email or web address]
[2025-04-29 08:57] VITALS: BMI 30.5
--- NOTE | 2025-04-29 08:59 | NMCV_ITS ---
NM lorne perf SPECT r/s* [id number] Mando Garcia Age: 59 Gender: M : 1965 Exam Date: 04/29/2025 09:38 Ordering Phys: Giuseppe Reyna DO Technologist: TATIANNA Lomeli Exam Location: [facility] Indications: cp STRESS TEST Please see separate stress test report in [facility] for full findings IMAGE PROTOCOL Rest/Stress 1 Lexiscan Day Radiopharmaceutical Dose (mCi) Administration Site Administered by Rest: Tc-99m 10.5 IV Ena Osborn [employer]QU[employer]ULTURE PROGRAM DIRECTOR Sestamibi Stress:Tc-99m 32.6 IV Ena Santiagogle, AQUACULTURE PROGRAM DIRECTOR Sestamibi Rest: 29-Apr-2025 60 Discovery 630 Stress: 29-Apr-2025 30 Discovery 630 0.4mg Lexiscan. Images obtained in supine and prone position. SPECT RESULTS Technical Quality: Good Raw Data Analysis: Normal Image Corrections: No attenuation or motion correction applied Summed Stress Score: 2 Summed Rest Score: 1 Summed Difference Score: 1 PERFUSION FINDINGS There is a small sized area of fixed perfusion defects in the inferolateral wall. 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 No significant ischemia. FUNCTIONAL RESULTS (calculated via Gated SPECT) Stress Image LV EF (%): 61 Stress EDV (mL):140 TID: 1.08 Stress ESV (mL):55 FUNCTIONAL FINDINGS: There is normal left ventricular systolic function. IMPRESSIONS 1. 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 No evidence of ischemia. 2. LV systolic function is normal. Slava Trevizo MD (Electronically Signed) Final Date: 01 May 2025 12:30 S
[2025-04-29] MEDS: regadenoson 0.4 Mg/5 ml Syringe IVP (10:10)
[2025-04-29 10:24] VITALS: BP 158/105; PULSE 60
== END 2025-04-29 08:33 | disposition home or self-care (01) ==
LOC: CDL 08:35
PROVIDERS: PCP Family Medicine; Visit Provider Family Medicine
DX: R07.9 Chest pain, unspecified (principal); R93.1 Abnormal findings on diagnostic imaging of heart and coronary circulation
CPT/HCPCS: 36415; 78452; 93017; 96374; A9500; J2785

== ENCOUNTER 2025-06-16 17:00 | Emergency (ER) | payer BC, SELFPAY ==
[2025-06-16 17:20] VITALS: BP 160/115; PULSE 79; TEMP 36.7; O2SAT 96
--- NOTE | 2025-06-16 18:04 | ED_ITS ---
HPI - GI Bleed 2 General: Chief complaint: GI Bleed Stated complaint: Dr parker ABD Pain Rectule bleeding Time Seen by Provider: 06/16/25 18:03 History of Present Illness: 59-year-old man who presents emergency r oom with rectal bleeding and abdominal pain. He had a colonoscopy a few days ago at [facility]. He had a polyp removed. He has now been having some lower abdominal pain. Particular yesterday. He has also been having some bright red blood per rectum. He had a colonoscopy because he was having bright red blood and now the bright red blood is worse Related Data Home Medications ?Medication ?Instructions ?Recorded ?Confirmed omeprazole 20 mg capsule,delayed 20 mg PO QAM 10/04/24 04/19/25 release cetirizine 10 mg tablet (Zyrtec) 10 mg PO QAM PRN bruce rgy symptoms 04/19/25 04/19/25 Previous Rx's ?Medication ?Instructions ?Recorded aspirin 81 mg tablet,delayed 81 mg PO DAILY #30 tabs 0 04/19/25 release Allergies Allergy/AdvReac Type Severity Reaction Status Date / Time codeine Allergy ADR-Nausea Verified 06/16/25 17:26 egg Allergy Unknown Verified 06/16/25 17:26 Review of Systems 2 Narrative: Constitutional symptoms: Negative except as documented in HPI. Skin symptoms: Negative except as documented in HPI. Eye symptoms: Negative except as documented in HPI. ENMT symptoms: Negative except as documented in HPI. Respiratory symptoms: Negative except as documented in HPI. Cardiovascular symptoms: Negative except as documented in HPI. Gastrointestinal symptoms: Negative except as documented in HPI. Genitourinary symptoms: Negative except as documented in HPI. Musculoskeletal symptoms: Negative except as documented in HPI. Neurologic symptoms: Negative except as documented in HPI. Psychiatric symptoms: Negative except as documented in HPI. Endocrine symptoms: Negative except as documented in HPI. PFSH ED 2 PFSH: Medical History (Updated 06/16/25 @ 20:16 by Loni Landis MD) Allergic rhinitis due to allergen URI with cough and congestion Chondromalacia, right knee Right knee meniscal tear History of gastroesophageal reflux (GERD) Surgical History History of exploratory laparotomy Family History Sister CAD (coronary artery disease) Brother CAD (coronary artery disease) Social History Smoking and tobacco/nicotine status: never used tobacco/nicotine Alcohol intake: current Alcohol intake frequency: holidays/special occasions only Substance/Drug Use: never Physical Exam 2 Narrative: EXAM NARRATIVE: General: Alert, no acute distress. Skin: Warm, dry. Head: Normocephalic, atraumatic. Neck: Supple, trachea midline. Eye: Extraocular movements are intact. Ears, nose, mouth and throat: mucosa moist. Cardiovascular: Regular, Normal peripheral perfusion. Respiratory: Lungs are clear to auscultation, respirations are non-labored, breath sounds are equal, Symmetrical chest wall expansion. Gastrointestinal: Soft, Nontender, Non distended Musculoskeletal: Normal ROM, no deformity. Neurological: Alert and oriented, No focal neurological deficit observed. Psychiatric: Cooperative, appropriate mood & affect. Course 2 Vital Signs: Vital signs: Vital Signs Temperature 98.1 F 06/16/25 17:20 Pulse Rate 71 06/16/25 19:30 Respiratory Rate 16 06/16/25 18:17 Blood Pressure 146/103 06/16/25 19:30 Pulse Oximetry 96 06/16/25 19:30 Oxygen Delivery Me thod Room Air 06/16/25 18:17 MDM - GI Bleed Medical Decision Making Medical decision making: Differential diagnosis for patient who presents with hematochezia/bright red blood per rectum including but not limited to and based on the above HPI, review of systems and physical exam: Internal hemorrhoid bleeding, diverticular bleeding, irritated colonic mucosa. This is most often not life-threatening. Main concerns would be for anemia. Also if this were a very brisk upper GI bleed there might be an elevation in the BUN. But likely this is lower GI bleeding. Orders placed to evaluate differential diagnosis based on the above differential, HPI and physical exam Lab Review: Laboratory results were reviewed and interpreted by myself the emergency room physician. No leukocytosis. Slight polycythemia with a hemoglobin of 17.5. BUN and creatinine are 17 and 1 which would indicate there is not been any upper GI bleeding urinalysis is negative for infection. Liver enzymes are normal. CT of the abdomen pelvis with contrast: No acute findings. Hepatic steatosis. Sigmoid diverticulosis without diverticulitis. Pulmonary nodule. This was reviewed and interpreted by myself the emergency room physician. I also reviewed the radiology report. I reviewed the patient's medical record. Reexamination: Patient remained stable. No increased work of breathing. No altered mental status. No focal motor deficits. I discussed findings of diverticulosis and a pulmonary nodule on his CT and also hepatic steatosis. They expressed understanding. They will follow with her primary doctor. Assessment and plan: Hematochezia Diverticulosis Pulmonary nodule - Discharged home - Discussed plan with patient. Answered any questions. - Evaluation and treatment of this problem were appropriate in the emergency setting. Lab Data 06/16/25 18:10 06/16/25 18:10 Radiology Impressions Abdomen/Pelvis CT 06/16/25 18:24 IMPRESSION: 1. No acute findings. 2. Hepatic steatosis. 3. Sigmoid diverticulosis without diverticulitis. 4. 4 mm left lower lobe nodule. For patients at low risk (minimal or absent history of smoking and of other known risk factors), no routine follow-up is indicated. For patients at high risk (history of smoking or of other known risk factors), consider optional CT Chest at 12 months. (Reference: Geoff) REFERENCES: Geoff H, et al. Guidelines for Management of Incidental Pulmonary Nodules Detected on CT Images: From the Fleischner Society 2017. Radiology. 2017;284(1):228-243. Laboratory Results WBC 9.67 10^3/uL (3.29-11.43) 06/16/25 18:10 RBC 5.73 10^6/uL (3.85-5.65) H 06/16/25 18:10 Hgb 17.50 g/dL (11.27-16.99) H 06/16/25 18:10 Hct 49.0 % (37-53) 06/16/25 18:10 MCV 85.5 fl (82-101) 06/16/25 18:10 MCH 30.5 pg (27-33) 06/16/25 18:10 MCHC 35.7 g/dL (30-55) 06/16/25 18:10 RDW 13.0 % (12.1-15.1) 06/16/25 18:10 Plt Count 275 10^3/cmm (157-399) 06/16/25 18:10 MPV 9.3 fL (7.4-10.4) 06/16/25 18:10 Neut % (Auto) 57.0 % 06/16/25 18:10 Lymph % (Auto) 28.9 % 06/16/25 18:10 [place] % (Auto) 8.4 % 06/16/25 18:10 Eos % (Auto) 4.3 % 06/16/25 18:10 Baso % (Auto) 1.0 % 06/16/25 18:10 Neut # (Auto) 5.51 10^3/uL (1.8-7.7) 06/16/25 18:10 Lymph # (Auto) 2.8 10^3/uL (0.8-4.8) 06/16/25 18:10 [place] # (Auto) 0.8 10^3/uL (0.2-0.9) 06/16/25 18:10 Eos # (Auto) 0.4 10^3/uL (0.0-0.8) 06/16/25 18:10 Baso # (Auto) 0.1 10^3/uL (0.0-0.1) 06/16/25 18:10 Nucleated RBC % (auto) 0 % 06/16/25 18:10 Nucleated RBCs # 0.0 /100WBC 06/16/25 18:10 Sodium 141 mmol/L (136-145) 06/16/25 18:10 Potassium 4.1 mmol/L (3.5-5.1) 06/16/25 18:10 Chloride 104 mmol/L (98-107) 06/16/25 18:10 Carbon Dioxide 25 mmol/L (22-29) 06/16/25 18:10 Anion Gap 16.1 (5-19) 06/16/25 18:10 BUN 17 mg/dL (6-20) 06/16/25 18:10 Creatinine 1.0 mg/dL (0.7-1.2) 06/16/25 18:10 GFR Calculation 76.7 mL/min (90-130) L 06/16/25 18:10 Glucose 94 mg/dL (65-115) 06/16/25 18:10 Calculated Osmolality 293 mOsm/kg (285-295) 06/16/25 18:10 Calcium 9.5 mg/dL (8.5-10.5) 06/16/25 18:10 Total Bilirubin 0.4 mg/dL (0.15-1.2) 06/16/25 18:10 AST 41 U/L (0-40) H 06/16/25 18:10 ALT 68 U/L (0-41) H 06/16/25 18:10 Alkaline Phosphatase 76 U/L (40-130) 06/16/25 18:10 Total Protein 7.9 g/dL (6.6-8.7) 06/16/25 18:10 Albumin 4.7 g/dL (3.5-5.2) 06/16/25 18:10 Globulin 3.2 g/dL (1.3-4.6) 06/16/25 18:10 Lipase 55 U/L (13-60) 06/16/25 18:10 Urine Color Yellow (Yellow) 06/16/25 18:00 Urine Appearance Clear (CLEAR) 06/16/25 18:00 Urine pH 5.0 (5-7) 06/16/25 18:00 Ur Specific [place] 1.027 (1.005-1.030) 06/16/25 18:00 Urine Protein Trace (Negative) A 06/16/25 18:00 Urine Glucose (UA) Negative (Normal) 06/16/25 18:00 Urine Ketones Trace (Negative) 06/16/25 18:00 Urine Blood Negative (Negative) 06/16/25 18:00 Urine Nitrate Negative (Negative) 06/16/25 18:00 Urine Bilirubin Negative (Negative) 06/16/25 18:00 Urine Urobilinogen 1.0 mg/dL (Negative) 06/16/25 18:00 Ur Leukocyte Esterase Negative (Negative) 06/16/25 18:00 Urine RBC 0-2 /hpf (0-2) 06/16/25 18:00 Urine WBC 0-5 /hpf (0-5) 06/16/25 18:00 Ur Squamous Epith Cells 0-5 /hpf (0-5) 06/16/25 18:00 Amorphous Sediment Not Reportable 06/16/25 18:00 Urine Bacteria None seen /hpf (NONE) 06/16/25 18:00 Hyaline Casts 1.21 /lpf 06/16/25 18:00 All radiology interpretation(s) finalized by discharge Discharge Plan Discharge Patient Disposition: Home Clinical Impression: Hematochezia, Diverticulosis, Incidental pulmonary nodule Condition: Stable Prescriptions: No Action omeprazole 20 mg capsule,delayed release(DR/EC) 20 mg PO QAM cetirizine [Zyrtec] 10 mg tablet 10 mg PO QAM PRN (Reason: allergy symptoms) aspirin 81 mg tablet,delayed release (DR/EC) 81 mg PO DAILY Qty: 30 0RF Discharge Orders: Discharge ED (Routine); Ordered 06/16/25 Ordered By: Loni Landis Referrals: Joes Munguia MD [Primary Care Provider, [facility]] Discharge Diet: Usual diet Discharge Activity: Increase activity as tolerated Patient Instructions: Rectal Bleeding (ED), Diverticulosis (ED), Opioid Safety, Pain Management, Patient Portal & Rory Instructions Activity Restrictions/Additional Instructions: A pulmonary nodule was seen on imaging. This will need follow up imaging with your primary provider. Please schedule an appointment concerning this. Thank you for choosing [facility] for your healthcare needs today. You have been screened and evaluated and felt safe for discharge. Health conditions do change or evolve sometimes and as such it is important that you follow up with your Primary Doctor to be re checked, 3-5 days is a general good time frame for follow up. You are always welcome to return to the ED for re assessment if your symptoms are worsening or you have new concerns Print Language: Liberian Coding Level of Care Code ED Tip Puncher for Debora Srivastava
[2025-06-16 18:17] VITALS: BP 153/110; PULSE 70; RESP 16; O2SAT 93
--- NOTE | 2025-06-16 18:24 | CTR_ITS ---
PROCEDURE INFORMATION: Exam: CT Abdomen And Pelvis With Contrast Exam date and time: 06/16/2025 6:53 PM Age: 59 years old Clinical indication: Abdominal pain; Generalized; Prior surgery; Surgery date: 6+ months; Surgery type: Appy, bladder TECHNIQUE: Imaging protocol: Computed tomography of the abdomen and pelvis with contrast. Radiation optimization: All CT scans at this facility use at least one of these dose optimization techniques: automated exposure control; mA and/or kV adjustment per patient size (includes targeted exams where dose is matched to clinical indication); or iterative reconstruction. Contrast material: OMNIPAQUE 350; Contrast volume: 100 ml; Contrast route: INTRAVENOUS (IV); COMPARISON: CR XR chest 1V portable [id number] 04/19/2025 8:33 AM RADIATION DOSE METRICS: Total DLP (mGy-cm): 943.83 FINDINGS: Lungs: Mild bibasilar atelectasis. 4 mm nodule in the left lung base. Diaphragm: Small sliding-type hiatal hernia. Liver: Mild diffuse hepatic steatosis. No suspicious liver lesion. Gallbladder and biliary ducts: Normal. No calcified stones. No ductal dilation. Pancreas: Normal. No ductal dilation. Spleen: Calcified splenic granulomas. Normal spleen size. Adrenal glands: Normal. No mass. Kidneys and ureters: Normal. No hydronephrosis. Stomach and bowel: Sigmoid diverticulosis without evidence of acute diverticulitis. No evidence of bowel obstruction. Appendix: Status post appendectomy. Intraperitoneal space: Unremarkable. No free air. No significant fluid collection. Vasculature: Unremarkable. No abdominal aortic aneurysm. Lymph nodes: Unremarkable. No enlarged lymph nodes. Urinary bladder: Unremarkable as visualized. Reproductive: Borderline prostatomegaly. Bones/joints: Unremarkable. No acute fracture. Soft tissues: Tiny fat containing umbilical hernia. CT/CT abdomen pelvis w con* [id number] IMPRESSION: 1. No acute findings. 2. Hepatic steatosis. 3. Sigmoid diverticulosis without diverticulitis. 4. 4 mm left lower lobe nodule. For patients at low risk (minimal or absent history of smoking and of other known risk factors), no routine follow-up is indicated. For patients at high risk (history of smoking or of other known risk factors), consider optional CT Chest at 12 months. (Reference: Geoff) REFERENCES: Geoff Liriano et al. Guidelines for Management of Incidental Pulmonary Nodules Detected on CT Images: From the Fleischner Society 2017. Radiology. 2017;284(1):228-243.
[2025-06-16 18:31] LABS: Glucose Urine UA Negative (Normal); Nitrate Urine Negative (Negative); Specific Gravity, Urine 1.027 (1.005-1.030)
[2025-06-16 18:34] LABS: Hematocrit 49.0 % (37-53); Hemoglobin 17.50 g/dL (11.27-16.99); Mean Corpuscular HGB Conc 35.7 g/dL (30-55); Mean Corpuscular Hemoglobin 30.5 pg (27-33); Mean Corpuscular Volume 85.5 fl (82-101); Nucleated Red Blood Cells % 0 %; Platelet Count 275 10^3/cmm (157-399); Red Blood Count 5.73 10^6/uL (3.85-5.65); White Blood Count 9.67 10^3/uL (3.29-11.43)
[2025-06-16 18:53] LABS: Alanine Aminotransferase 68 U/L (0-41); Albumin Level 4.7 g/dL (3.5-5.2); Alkaline Phosphatase 76 U/L (40-130); Anion Gap 16.1 (5-19); Aspartate Amino Transferase 41 U/L (0-40); Blood Urea Nitrogen 17 mg/dL (6-20); Calcium 9.5 mg/dL (8.5-10.5); Carbon Dioxide 25 mmol/L (22-29); Chloride 104 mmol/L (98-107); Creatinine Clr Calc Pharmacy 98.4866; Globulin 3.2 g/dL (1.3-4.6); Glucose 94 mg/dL (65-115); Lipase 55 U/L (13-60); Osmolality Calculated 293 mOsm/kg (285-295); Potassium 4.1 mmol/L (3.5-5.1); Sodium 141 mmol/L (136-145); Total Protein 7.9 g/dL (6.6-8.7)
[2025-06-16] MEDS: iohexol 350 mg/mL 500 mL Btl (per mL) IV (18:55)
[2025-06-16 19:00] VITALS: BP 153/110; PULSE 63; O2SAT 94
[2025-06-16 19:30] VITALS: BP 146/103; PULSE 71; O2SAT 96
[2025-06-16 20:18] VITALS: BP 146/103; PULSE 60; O2SAT 95
== END 2025-06-16 20:21 | disposition home or self-care (01) ==
PROVIDERS: Emergency Medicine; Emergency Provider Emergency Medicine; PCP Family Medicine
DX: K92.1 Melena (principal); K57.90 Diverticulosis of intestine, part unspecified, without perforation or abscess without bleeding; R91.1 Solitary pulmonary nodule; Z79.82 Long term (current) use of aspirin
CPT/HCPCS: 36415; 74177; 80053; 81001; 83690; 85025; 99285